=== PATIENT | male | born 1970 | race Caucasian/White ===

== ENCOUNTER 2020-08-28 09:49 | Emergency (ER) | payer OTHER, BC ==
[~2020-08-28] VITALS: Ht 180.3 cm; Wt 75.0 kg
[2020-08-28 09:55] VITALS: BP 158/99
[2020-08-28] MEDS ORDERED: CEPH250T PO (10:53)
[2020-08-28] MEDS ORDERED: cephalexin 250mg capsule PO ONE (11:00)
== END 2020-08-28 11:10 | disposition home or self-care (01) ==
LOC: ER 09:49 → EDUNIT# 09:49 → ER 11:10
DX: S01.112A Laceration without foreign body of left eyelid and periocular area, initial encounter (principal); Z79.2 Long term (current) use of antibiotics; X58.XXXA Exposure to other specified factors, initial encounter; Y93.89 Activity, other specified; Y92.89 Other specified places as the place of occurrence of the external cause; Y99.8 Other external cause status
CPT/HCPCS: 12013; 99283